=== PATIENT | male | born 1945 | race Caucasian/White ===

== ENCOUNTER → 2017-04-09 | Outpatient (CLI) | payer MEDICARE ==
[~2017-04-09] MED LIST: COREG6.25 MG PO
== END ==
LOC: KOH-I 04-08 09:30 → US 10:00
DX: B18.1 Chronic viral hepatitis B without delta-agent (principal); K82.8 Other specified diseases of gallbladder; N28.89 Other specified disorders of kidney and ureter
CPT/HCPCS: 76705

== ENCOUNTER → 2017-05-06 | Outpatient (CLI) | payer MEDICARE | LOC: KOH-I 15:09 | DX: R05 Cough (principal); R50.9 Fever, unspecified; J44.0 Chronic obstructive pulmonary disease with (acute) lower respiratory infection | CPT/HCPCS: 71020 ==

== ENCOUNTER 2017-05-11 19:34 | Emergency (ER) | payer MEDICARE ==
[2017-05-11 21:00] LABS: HEMOGLOBIN 12.5 gm/dl (14.0-17.5); RED BLOOD COUNT 3.29 M/UL (4.20-5.50); WHITE BLOOD COUNT 9.1 K/UL (4.5-11.0)
== END 2017-05-12 01:32 | disposition home or self-care (01) ==
LOC: ER1 19:34
PROVIDERS: Emergency Medicine
DX: R06.6 Hiccough (principal); I10 Essential (primary) hypertension; I25.10 Atherosclerotic heart disease of native coronary artery without angina pectoris; E78.00 Pure hypercholesterolemia, unspecified; Z95.0 Presence of cardiac pacemaker
CPT/HCPCS: 36415; 71020; 80053; 81001; 82550; 82553; 83690; 83874; 83880; 84484; 85025; 85610; 85730; 93005; 99284; Q0161

== ENCOUNTER 2021-01-19 21:28 | Emergency (ER) | payer MEDICARE, OTHER ==
[~2021-01-19 21:28] MED LIST changes: +ASPIRIN EC81 MG PO; +AUGMENTIN 875-1 EACH PO; +BUDESONIDE0.5 MG/2 M NEB; +BUMETANIDE0.5 MG PO; +CLOPIDOGREL75 MG PO; +ENDOCET 5-3251 EACH PO; +FLOMAX 0.4 MG0.4 MG PO; +IMDUR ER TAB 3030 MG PO; +IPRAT-ALBUT 0.5-3 ML INH; +LIPITOR80 MG PO; +LOPRESSOR 25 MG25 MG PO; +MULTIVITAMINS1 EAC1 PO; +NITROSTAT0.4 MG SL; +PANTOPRAZOLE SO40 MG PO; +PREDNISONE 20 M20 MG PO; +PREDNISONE20 MG PO; +PROSCAR 5 MG TAB5 MG PO; +RANEXA500 MG PO; +SYMBICORT 80-10.2 GM INH; +TOPROL XL25 MG PO; +VENTOLIN HFA 66.7 GM INH; +XANAX0.5 MG PO
[2021-01-19 22:05] LABS: HEMOGLOBIN 11.6 gm/dl (14.0-17.5); RED BLOOD COUNT 3.38 M/UL (4.20-5.50); WHITE BLOOD COUNT 10.2 K/UL (4.5-11.0)
[2021-01-20] MEDS ORDERED: OMNICEF 300 MG300 MG PO (00:37)
[2021-01-20] MEDS ORDERED: PREDNISONE 20 M20 MG PO (00:37)
[2021-01-20] MEDS ORDERED: AZITHROMYCIN500 MG PO (00:37)
== END 2021-01-20 01:07 | disposition home or self-care (01) ==
LOC: ER1 21:28
PROVIDERS: Emergency Medicine
DX: J44.1 Chronic obstructive pulmonary disease with (acute) exacerbation (principal); I50.9 Heart failure, unspecified; N18.9 Chronic kidney disease, unspecified; I25.10 Atherosclerotic heart disease of native coronary artery without angina pectoris; I51.9 Heart disease, unspecified; Z87.891 Personal history of nicotine dependence; Z20.822 Contact with and (suspected) exposure to COVID-19
CPT/HCPCS: 36415; 36600; 71045; 80053; 82550; 82553; 82803; 83605; 83735; 83874; 83880; 84100; 84484; 85025; 85610; 85730; 87040; 93005; 94640; 94664; 96374; 99285; J2930; U0002

== ENCOUNTER 2021-03-15 15:55 | Inpatient (IN) | payer MEDICARE, OTHER ==
[~2021-03-15] VITALS: Ht 165.1 cm; Wt 50.3 kg
[~2021-03-15 15:55] MED LIST changes: +AZITHROMYCIN500 MG PO; +OMNICEF 300 MG300 MG PO
[2021-03-15 16:20] LABS: HEMOGLOBIN 11.6 gm/dl (14.0-17.5); RED BLOOD COUNT 3.44 M/UL (4.20-5.50); WHITE BLOOD COUNT 10.6 K/UL (4.5-11.0)
--- NOTE | 2021-03-15 20:37 | NUR ---
CANNOT OBTAIN HOME MEDS AT THIS TIME. EMERGENCY CONTACT NOT ANSWERING THE PHONE. DO NOT KNOW SONS NUMBER, WHO LIVES WITH HIM
[2021-03-16 02:23] LABS: HEMOGLOBIN 10.1 gm/dl (14.0-17.5)
[2021-03-16 02:26] LABS: RED BLOOD COUNT 3.06 M/UL (4.20-5.50); WHITE BLOOD COUNT 4.1 K/UL (4.5-11.0)
[2021-03-16] MEDS ORDERED: BARACLUDE1 MG PO (21:42)
[2021-03-17 02:56] LABS: HEMOGLOBIN 10.4 gm/dl (14.0-17.5); RED BLOOD COUNT 3.1 M/UL (4.20-5.50)
[2021-03-17 03:00] LABS: WHITE BLOOD COUNT 9.9 K/UL (4.5-11.0)
--- NOTE | 2021-03-17 19:01 | NUR ---
LASIX MORNING AND NIGHT DOSE HELD DUE TO BP LOW.
--- NOTE | 2021-03-17 19:01 | NUR ---
DOBUTAMINE DRIP WAS HELD UNTIL AFTER 1300 BECAUSE PATIENTS BP DID NOT MEET PARAMETERS THAT DR. WALLACE HAS PUT IN THE MAR.
--- NOTE | 2021-03-19 12:21 | NUR ---
03/19/21 1220 TELE ROJAS NOTIFIED OF PATIENT GOING DOWN FOR PROCEDURE
[2021-03-19 19:28] LABS: HEMOGLOBIN 9.8 gm/dl (14.0-17.5); RED BLOOD COUNT 2.88 M/UL (4.20-5.50); WHITE BLOOD COUNT 11.3 K/UL (4.5-11.0)
[2021-03-20 03:27] LABS: HEMOGLOBIN 9.1 gm/dl (14.0-17.5); RED BLOOD COUNT 2.73 M/UL (4.20-5.50); WHITE BLOOD COUNT 9.7 K/UL (4.5-11.0)
--- NOTE | 2021-03-20 03:59 | NUR ---
1939, BLEEDING STOPPED, PRESSURE DRESSING INTACT, FAMILY AT BEDSIDE AND KAYE CATH DRAING. PATIENT CHECKED NUMBEROUS TIMES T/O THE EVENING, NO BEEDING, SITE IS SOFT. DSTAT WAS APPLIED TO SITE PRIOR TO FINAL 4X4 AND COMPRESSION DRESSING. VSS STABLE AND NO FURTHER ECCHYMOSSI NOTED.
[2021-03-21 03:39] LABS: HEMOGLOBIN 8.7 gm/dl (14.0-17.5); RED BLOOD COUNT 2.56 M/UL (4.20-5.50); WHITE BLOOD COUNT 8.9 K/UL (4.5-11.0)
[2021-03-22 04:24] LABS: HEMOGLOBIN 9.2 gm/dl (14.0-17.5); RED BLOOD COUNT 2.71 M/UL (4.20-5.50); WHITE BLOOD COUNT 10.1 K/UL (4.5-11.0)
[2021-03-22] MEDS ORDERED: METOPROLOL SUCC25 MG PO (10:08)
[2021-03-22] MEDS ORDERED: OMNICEF 300 MG300 MG PO (10:14)
[2021-03-22] MEDS ORDERED: IPRAT-ALBUT 0.5-3 ML INH (10:14)
== END 2021-03-22 15:00 | disposition home or self-care (01) | DRG 273 ==
LOC: ER1 15:55 → PROG CARE 17:46 → CDU 17:46 → PROG CARE 18:36
PROVIDERS: Family Medicine; Internal Medicine Nephrology; ADMIT Internal Medicine
PROC: 02583ZZ Destruction of Conduction Mechanism, Percutaneous Approach (ICD-10-PCS; principal; 2021-03-19)
PROC: 02K83ZZ Map Conduction Mechanism, Percutaneous Approach (ICD-10-PCS; 2021-03-19)
PROC: 4A023FZ Measurement of Cardiac Rhythm, Percutaneous Approach (ICD-10-PCS; 2021-03-19)
PROC: 4A0234Z Measurement of Cardiac Electrical Activity, Percutaneous Approach (ICD-10-PCS; 2021-03-19)
PROC: B24BZZ4 Ultrasonography of Heart with Aorta, Transesophageal (ICD-10-PCS; 2021-03-19)
DX: I13.0 Hypertensive heart and chronic kidney disease with heart failure and stage 1 through stage 4 chronic kidney disease, or unspecified chronic kidney disease (principal); J96.21 Acute and chronic respiratory failure with hypoxia; I50.23 Acute on chronic systolic (congestive) heart failure; J18.9 Pneumonia, unspecified organism; J44.1 Chronic obstructive pulmonary disease with (acute) exacerbation; N13.2 Hydronephrosis with renal and ureteral calculous obstruction; I48.92 Unspecified atrial flutter; I47.2 Ventricular tachycardia; D62 Acute posthemorrhagic anemia; Z20.822 Contact with and (suspected) exposure to COVID-19; N18.30 Chronic kidney disease, stage 3 unspecified; I07.1 Rheumatic tricuspid insufficiency; I27.20 Pulmonary hypertension, unspecified; I71.4 Abdominal aortic aneurysm, without rupture; I44.7 Left bundle-branch block, unspecified; R53.81 Other malaise; N43.3 Hydrocele, unspecified; N40.0 Benign prostatic hyperplasia without lower urinary tract symptoms; I25.5 Ischemic cardiomyopathy; D63.1 Anemia in chronic kidney disease; I48.91 Unspecified atrial fibrillation; Z79.01 Long term (current) use of anticoagulants; Z95.810 Presence of automatic (implantable) cardiac defibrillator; Z87.891 Personal history of nicotine dependence; I25.2 Old myocardial infarction; Z88.8 Allergy status to other drugs, medicaments and biological substances; Z82.49 Family history of ischemic heart disease and other diseases of the circulatory system; Z95.5 Presence of coronary angioplasty implant and graft
CPT/HCPCS: 0240U; 36415; 36600; 71045; 76870; 80048; 80053; 82550; 82553; 82570; 82728; 82803; 83540; 83550; 83605; 83874; 83880; 84156; 84484; 85025; 85610; 85730; 93005; 93312; 93320; 93609; 93621; 94640; 94664; 94760; 96374; 96375; 97110-GP-CQ; 97161; 97530-GP-CQ; 99152; 99153; 99285; C1733; C1766; J0696; J1205; J1250; J1644; J1940; J2250; J2920; J2930; J3010; J7040

== ENCOUNTER 2021-05-02 17:15 | Inpatient (IN) | payer MEDICARE, MEDICAID ==
[~2021-05-02] VITALS: Ht 162.6 cm; Wt 45.8 kg
[~2021-05-02 17:15] MED LIST changes: +BARACLUDE1 MG PO; +METOPROLOL SUCC25 MG PO
[2021-05-02 17:54] LABS: HEMOGLOBIN 9.6 gm/dl (14.0-17.5); RED BLOOD COUNT 2.72 M/UL (4.20-5.50); WHITE BLOOD COUNT 9.3 K/UL (4.5-11.0)
--- NOTE | 2021-05-03 11:43 | NUR ---
PATIENT HAS BEEN NPO.
--- NOTE | 2021-05-03 11:50 | NUR ---
DR. WELLS WITH THE PATIENT AND AWARE OF PATIENT'S LOW B/P
--- NOTE | 2021-05-03 16:43 | NUR ---
reported to dr. lugo of telemetry reading sent on the floor and vtach episode and acknowledged
[2021-05-04 01:03] LABS: ACINETOBACTER BAUMANNII Not Detected (Negative); CANDIDA ALBICANS Not Detected (Negative); CANDIDA KRUSEI Not Detected (Negative); CANDIDA TROPICALIS Not Detected (Negative); ENTEROCOCCUS Not Detected (Negative); ESCHERICHIA COLI Not Detected (Negative); HAEMOPHILUS INFLUENZAE Not Detected (Negative); KLEBSIELLA OXYTOCA Not Detected (Negative); KLEBSIELLA PNEUMONIAE Not Detected (Negative); KPC-CARBAPENEM-RESISTANCE GENE Not Detected (Negative); PROTEUS Not Detected (Negative); PSEUDOMONAS AERUGINOSA Not Detected (Negative); SERRATIA MARCESANS Not Detected (Negative); STAPHYLOCOCCUS Not Detected (Negative); STAPHYLOCOCCUS AUREUS Not Detected (Negative); STREP AGALACTIAE (GROUP B) Not Detected (Negative); STREP PYOGENES (GROUP A) Not Detected (Negative); STREPTOCOCCUS Not Detected (Negative); mecA (METHICILLIN RESIST GENE Not Detected (Negative); vanA/B (VANCOMYCIN RESIST GENE Not Detected (Negative)
[2021-05-04 06:02] LABS: HEMOGLOBIN 9.1 gm/dl (14.0-17.5); RED BLOOD COUNT 2.56 M/UL (4.20-5.50); WHITE BLOOD COUNT 7.6 K/UL (4.5-11.0)
[2021-05-05] MEDS ORDERED: ASPIRIN EC81 MG PO (11:59)
== END 2021-05-05 14:44 | disposition home or self-care (01) | DRG 291 ==
LOC: ER1 17:15 → M/S 21:18 → CDU 21:18 → M/S 23:34
PROVIDERS: Emergency Medicine; Physician Assistant Medical; ADMIT Internal Medicine
DX: I13.0 Hypertensive heart and chronic kidney disease with heart failure and stage 1 through stage 4 chronic kidney disease, or unspecified chronic kidney disease (principal); I50.23 Acute on chronic systolic (congestive) heart failure; J96.11 Chronic respiratory failure with hypoxia; Z20.822 Contact with and (suspected) exposure to COVID-19; N18.30 Chronic kidney disease, stage 3 unspecified; I95.89 Other hypotension; J44.9 Chronic obstructive pulmonary disease, unspecified; I25.5 Ischemic cardiomyopathy; N40.0 Benign prostatic hyperplasia without lower urinary tract symptoms; E78.5 Hyperlipidemia, unspecified; I48.0 Paroxysmal atrial fibrillation; K74.60 Unspecified cirrhosis of liver; I25.10 Atherosclerotic heart disease of native coronary artery without angina pectoris; Z95.1 Presence of aortocoronary bypass graft; Z95.810 Presence of automatic (implantable) cardiac defibrillator; Z99.81 Dependence on supplemental oxygen; Z79.899 Other long term (current) drug therapy; Z87.891 Personal history of nicotine dependence; Z86.19 Personal history of other infectious and parasitic diseases
CPT/HCPCS: 36415; 36600; 71045; 80048; 80053; 80202; 81001; 82550; 82553; 82803; 83605; 83735; 83874; 83880; 84100; 84132; 84484; 85025; 85027; 87040; 87077; 87086; 87150; 87186; 93005; 94640; 94664; 94760; 96374; 96375; 99285; A6212; J0696; J1650; J2930; J3370; J7070; U0002

== ENCOUNTER → 2021-05-07 | Outpatient (CLI) | payer MEDICARE, OTHER | LOC: EXRD 15:00 | DX: R06.02 Shortness of breath (principal) | CPT/HCPCS: 71046 ==

== ENCOUNTER 2021-08-28 13:22 | Inpatient (IN) | payer MEDICARE ==
[~2021-08-28] VITALS: Ht 170.2 cm; Wt 54.9 kg
[~2021-08-28 13:22] MED LIST changes: -BUMETANIDE0.5 MG PO
[2021-08-28 14:52] LABS: HEMOGLOBIN 9.8 gm/dl (14.0-17.5); RED BLOOD COUNT 2.79 M/UL (4.20-5.50); WHITE BLOOD COUNT 6.9 K/UL (4.5-11.0)
[2021-08-29] MEDS ORDERED: PREDNISONE10 MG PO (01:02)
--- NOTE | 2021-08-29 03:13 | NUR ---
BLADDER SCAN PATIENT D/T DISTENDED BLADDER. MORE THAN 500ML URINE NOTED ON SCAN. NOTIFIED DR DOTY AWAITING ORDERS.
[2021-08-29 04:06] LABS: HEMOGLOBIN 9.8 gm/dl (14.0-17.5); RED BLOOD COUNT 2.84 M/UL (4.20-5.50)
[2021-08-29 04:08] LABS: WHITE BLOOD COUNT 4.6 K/UL (4.5-11.0)
--- NOTE | 2021-08-29 07:06 | NUR ---
PT HAS HAD TO URINATE ABOUT EVERY 10 MINUTES FOR THE PAST 5 HOURS. HE IS UNABLE TO EMPTY HIS BLADDER. THE BLADDER SCAN SHOWED MORE THAN 400ML. DR. DOTY WAS NOTIFIED AND ORDER TO PLACE KAYE.
[2021-08-29] MEDS ORDERED: BUMETANIDE1 MG PO (11:23)
[2021-08-30 03:43] LABS: HEMOGLOBIN 9.5 gm/dl (14.0-17.5); RED BLOOD COUNT 2.75 M/UL (4.20-5.50)
[2021-08-30 03:45] LABS: WHITE BLOOD COUNT 7.2 K/UL (4.5-11.0)
[2021-08-31] MEDS ORDERED: ASPIRIN EC81 MG PO (16:21)
== END 2021-08-31 18:30 | disposition home or self-care (01) | DRG 292 ==
LOC: ER1 13:22 → CDU 17:29 → M/S 22:54
PROVIDERS: Emergency Medicine; Physician Assistant Medical; ADMIT Internal Medicine Infectious Disease
PROC: 3E0333Z Introduction of Anti-inflammatory into Peripheral Vein, Percutaneous Approach (ICD-10-PCS; principal; 2021-08-28)
DX: I50.23 Acute on chronic systolic (congestive) heart failure (principal); N18.4 Chronic kidney disease, stage 4 (severe); J90 Pleural effusion, not elsewhere classified; N17.9 Acute kidney failure, unspecified; J98.11 Atelectasis; B19.10 Unspecified viral hepatitis B without hepatic coma; Z20.822 Contact with and (suspected) exposure to COVID-19; J44.9 Chronic obstructive pulmonary disease, unspecified; N40.0 Benign prostatic hyperplasia without lower urinary tract symptoms; I25.10 Atherosclerotic heart disease of native coronary artery without angina pectoris; K40.90 Unilateral inguinal hernia, without obstruction or gangrene, not specified as recurrent; R13.10 Dysphagia, unspecified; I25.5 Ischemic cardiomyopathy; K74.60 Unspecified cirrhosis of liver; D69.6 Thrombocytopenia, unspecified; D63.1 Anemia in chronic kidney disease; Z87.442 Personal history of urinary calculi; Z87.891 Personal history of nicotine dependence; Z95.810 Presence of automatic (implantable) cardiac defibrillator; Z95.1 Presence of aortocoronary bypass graft; Z79.52 Long term (current) use of systemic steroids; Z79.82 Long term (current) use of aspirin; Z98.890 Other specified postprocedural states
CPT/HCPCS: 36415; 36600; 71045; 74230; 80048; 80053; 82550; 82553; 82803; 83605; 83735; 83874; 83880; 84484; 85025; 85027; 87040; 92526; 92610; 92611-GN; 93005; 94640; 94664; 94760; 96374; 97110-GP-CQ; 97116-GP-CQ; 97161; 99285; J1100; J1940; U0002

== ENCOUNTER 2021-11-23 13:42 | Inpatient (IN) | payer MEDICARE ==
[~2021-11-23] VITALS: Ht 165.1 cm; Wt 45.0 kg
[~2021-11-23 13:42] MED LIST changes: +BUMETANIDE1 MG PO; +PREDNISONE10 MG PO; +PROAIR HFA8.5 GM INH; -VENTOLIN HFA 66.7 GM INH
[2021-11-23 14:26] LABS: HEMOGLOBIN 9.9 gm/dl (14.0-17.5); RED BLOOD COUNT 2.87 M/UL (4.20-5.50); WHITE BLOOD COUNT 11.7 K/UL (4.5-11.0)
[2021-11-24 04:11] LABS: RED BLOOD COUNT 2.61 M/UL (4.20-5.50)
[2021-11-24 04:15] LABS: WHITE BLOOD COUNT 6.5 K/UL (4.5-11.0)
--- NOTE | 2021-11-25 05:41 | NUR ---
PHARMACY, MARQUES MULLER, MADE AWARE OF VANC TROUGH 18.9. HE STATED "THEY WILL TAKE CARE OF IT THIS MORNING."
[2021-11-26 04:50] LABS: HEMOGLOBIN 10.1 gm/dl (14.0-17.5)
[2021-11-26 05:09] LABS: RED BLOOD COUNT 2.98 M/UL (4.20-5.50); WHITE BLOOD COUNT 15.6 K/UL (4.5-11.0)
[2021-11-28 04:58] LABS: HEMOGLOBIN 10.8 gm/dl (14.0-17.5); RED BLOOD COUNT 3.11 M/UL (4.20-5.50)
[2021-11-28 05:06] LABS: WHITE BLOOD COUNT 20.6 K/UL (4.5-11.0)
[2021-11-29 02:46] LABS: HEMOGLOBIN 10.8 gm/dl (14.0-17.5); RED BLOOD COUNT 3.22 M/UL (4.20-5.50); WHITE BLOOD COUNT 21.4 K/UL (4.5-11.0)
[2021-11-30 02:54] LABS: HEMOGLOBIN 9.6 gm/dl (14.0-17.5); RED BLOOD COUNT 2.84 M/UL (4.20-5.50); WHITE BLOOD COUNT 6.5 K/UL (4.5-11.0)
[2021-12-01 03:10] LABS: HEMOGLOBIN 9.5 gm/dl (14.0-17.5); RED BLOOD COUNT 2.78 M/UL (4.20-5.50)
[2021-12-01 03:21] LABS: WHITE BLOOD COUNT 8.7 K/UL (4.5-11.0)
[2021-12-02 02:47] LABS: HEMOGLOBIN 11.5 gm/dl (14.0-17.5); RED BLOOD COUNT 3.37 M/UL (4.20-5.50); WHITE BLOOD COUNT 31.7 K/UL (4.5-11.0)
[2021-12-03 00:36] LABS: BODY FLUID SOURCE PLEURAL; LDH, BODY FLUID 473 U/L; MONONUCLEAR CELLS 45.1 (75-100); POLYMORPHONUCLEAR % 54.9 (0-25); RBC (AUTOMATED) 8300 (0-100000); TOTAL PROTEIN, BODY FLUID 2.3 gm/dL; WBC (AUTOMATED) 153 (0-500)
[2021-12-03 07:03] LABS: HEMOGLOBIN 11.2 gm/dl (14.0-17.5); RED BLOOD COUNT 3.28 M/UL (4.20-5.50)
[2021-12-03 07:17] LABS: WHITE BLOOD COUNT 18.1 K/UL (4.5-11.0)
[2021-12-04 04:14] LABS: HEMOGLOBIN 9.5 gm/dl (14.0-17.5)
[2021-12-04 04:20] LABS: RED BLOOD COUNT 2.81 M/UL (4.20-5.50); WHITE BLOOD COUNT 9.5 K/UL (4.5-11.0)
[2021-12-05 03:07] LABS: HEMOGLOBIN 9.1 gm/dl (14.0-17.5); RED BLOOD COUNT 2.69 M/UL (4.20-5.50); WHITE BLOOD COUNT 11.2 K/UL (4.5-11.0)
[2021-12-06 04:05] LABS: HEMOGLOBIN 10.6 gm/dl (14.0-17.5)
[2021-12-06 04:09] LABS: RED BLOOD COUNT 3.06 M/UL (4.20-5.50); WHITE BLOOD COUNT 16.4 K/UL (4.5-11.0)
[2021-12-06 17:13] LABS: HEPARIN INDUCED PLATELET AB 0.151 OD (0.000-0.400)
[2021-12-07 07:03] LABS: HEMOGLOBIN 9.8 gm/dl (14.0-17.5); RED BLOOD COUNT 2.89 M/UL (4.20-5.50); WHITE BLOOD COUNT 14.7 K/UL (4.5-11.0)
--- NOTE | 2021-12-07 10:15 | NUR ---
ATTEMPTED TO CONTACT EMERGENCY CONTACT AND ALSO THE SON THAT IS ON THE FACE SHEET AND NO ANSWER. WAS CALLING TO INFORM THE FAMILY OF THE PATIENTS CONDITION AND THE TRANSFER THAT IS GOING TO BE DONE TO [facility].
[2021-12-08 03:25] LABS: HEMOGLOBIN 9.5 gm/dl (14.0-17.5); RED BLOOD COUNT 2.83 M/UL (4.20-5.50)
[2021-12-08 03:26] LABS: WHITE BLOOD COUNT 21.2 K/UL (4.5-11.0)
[2021-12-08 13:38] LABS: HEMOGLOBIN 10.2 gm/dl (14.0-17.5); RED BLOOD COUNT 3.06 M/UL (4.20-5.50)
[2021-12-09 03:37] LABS: WHITE BLOOD COUNT 19.4 K/UL (4.5-11.0)
[2021-12-09 03:38] LABS: RED BLOOD COUNT 2.69 M/UL (4.20-5.50)
[2021-12-10 04:17] LABS: HEMOGLOBIN 8.9 gm/dl (14.0-17.5); RED BLOOD COUNT 2.69 M/UL (4.20-5.50); WHITE BLOOD COUNT 14.9 K/UL (4.5-11.0)
[2021-12-11 04:50] LABS: HEMOGLOBIN 8.5 gm/dl (14.0-17.5); RED BLOOD COUNT 2.49 M/UL (4.20-5.50); WHITE BLOOD COUNT 12.6 K/UL (4.5-11.0)
[2021-12-12 03:51] LABS: HEMOGLOBIN 8.2 gm/dl (14.0-17.5); RED BLOOD COUNT 2.43 M/UL (4.20-5.50); WHITE BLOOD COUNT 13.7 K/UL (4.5-11.0)
--- NOTE | 2021-12-13 04:03 | NUR ---
RIGHT CHEST TUBE INSERTION SITE DRESSING SATURATED; REPLACED WITH GAUZE AND TEGADERM. SKIN TEAR DRESSINGS REPLACED; ARMS RE-WRAPPED WITH CLEAN NON-ADHERENT PADS AND KERLIX. PT TOLERATED WELL. BED CHANGED. PATIENT DOING WELL AT THIS TIME; VERY ALERT AND PLEASANT.
[2021-12-13 04:04] LABS: HEMOGLOBIN 8.1 gm/dl (14.0-17.5); RED BLOOD COUNT 2.35 M/UL (4.20-5.50); WHITE BLOOD COUNT 11.1 K/UL (4.5-11.0)
--- NOTE | 2021-12-14 17:56 | NUR ---
12/14/21 1750 REPORT CALLED TO SERGEY, TO BE TRANSFERRED TO ROOM [id number]
[2021-12-15 05:50] LABS: HEMOGLOBIN 9.3 gm/dl (14.0-17.5)
[2021-12-15 05:58] LABS: RED BLOOD COUNT 2.68 M/UL (4.20-5.50); WHITE BLOOD COUNT 15.3 K/UL (4.5-11.0)
[2021-12-16 07:20] LABS: HEMOGLOBIN 9.1 gm/dl (14.0-17.5); RED BLOOD COUNT 2.71 M/UL (4.20-5.50); WHITE BLOOD COUNT 14.2 K/UL (4.5-11.0)
[2021-12-17 04:32] LABS: HEMOGLOBIN 9.3 gm/dl (14.0-17.5); RED BLOOD COUNT 2.74 M/UL (4.20-5.50); WHITE BLOOD COUNT 13.7 K/UL (4.5-11.0)
[2021-12-18 07:42] LABS: HEMOGLOBIN 8.8 gm/dl (14.0-17.5); RED BLOOD COUNT 2.57 M/UL (4.20-5.50)
[2021-12-19 04:28] LABS: HEMOGLOBIN 9.4 gm/dl (14.0-17.5); RED BLOOD COUNT 2.68 M/UL (4.20-5.50); WHITE BLOOD COUNT 22.3 K/UL (4.5-11.0)
[2021-12-19 16:41] LABS: WHITE BLOOD COUNT 18.2 K/UL (4.5-11.0)
[2021-12-20 05:56] LABS: HEMOGLOBIN 8.6 gm/dl (14.0-17.5); RED BLOOD COUNT 2.44 M/UL (4.20-5.50)
[2021-12-20 06:01] LABS: WHITE BLOOD COUNT 11.1 K/UL (4.5-11.0)
[2021-12-21 04:56] LABS: HEMOGLOBIN 7.5 gm/dl (14.0-17.5); WHITE BLOOD COUNT 12.1 K/UL (4.5-11.0)
[2021-12-21 05:05] LABS: RED BLOOD COUNT 2.18 M/UL (4.20-5.50)
[2021-12-22 10:33] LABS: HEMOGLOBIN 8.8 gm/dl (14.0-17.5); RED BLOOD COUNT 2.53 M/UL (4.20-5.50)
[2021-12-23 08:09] LABS: RED BLOOD COUNT 2.29 M/UL (4.20-5.50)
[2021-12-23 08:25] LABS: WHITE BLOOD COUNT 14.2 K/UL (4.5-11.0)
[2021-12-24 06:50] LABS: HEMOGLOBIN 7.4 gm/dl (14.0-17.5); RED BLOOD COUNT 2.14 M/UL (4.20-5.50)
[2021-12-24 06:54] LABS: WHITE BLOOD COUNT 10.2 K/UL (4.5-11.0)
[2021-12-24 16:11] LABS: HEPARIN INDUCED PLATELET AB 0.123 OD (0.000-0.400)
[2021-12-25 06:56] LABS: HEMOGLOBIN 7.5 gm/dl (14.0-17.5); RED BLOOD COUNT 2.15 M/UL (4.20-5.50)
[2021-12-26 05:11] LABS: WHITE BLOOD COUNT 7.7 K/UL (4.5-11.0)
[2021-12-26 05:14] LABS: HEMOGLOBIN 6.3 gm/dl (14.0-17.5); RED BLOOD COUNT 1.84 M/UL (4.20-5.50)
--- NOTE | 2021-12-26 06:32 | NUR ---
[facility] 6.[address] KIRK NO ANSWER, CALLED LAB NO BLOOD ON STAND , [address] KIRK PRBC 2UNITS, ALSO DURING THIS TIME THE PT HAS PULLED IV OUT. ORDER PLACED. NOTIFIED ONCOMING NURSE.
--- NOTE | 2021-12-26 12:30 | NUR ---
dr. price aware of 15 beat run of nsvt as notified per telemetry. no new orders noted.
--- NOTE | 2021-12-26 13:21 | NUR ---
DR. DELGADO AWARE OF PATIENT'S LONG BURST OF V TACH. NEW ORDER NOTED FOR EKG.
--- NOTE | 2021-12-27 03:01 | NUR ---
PT KEEPS HOLLERING FOR WATER TO DRINK. PT WILL NOT DRINK NECTAR THICK LIQUIDS. TOOK LEMON GLYCERIN SWABS FOR ORAL CARE FOR PT. PT STATES THAT HELPED SOME.
[2021-12-27 07:17] LABS: HEMOGLOBIN 10.7 gm/dl (14.0-17.5); RED BLOOD COUNT 3.53 M/UL (4.20-5.50); WHITE BLOOD COUNT 11.9 K/UL (4.5-11.0)
[2021-12-28 04:05] LABS: HEMOGLOBIN 10.5 gm/dl (14.0-17.5); RED BLOOD COUNT 3.38 M/UL (4.20-5.50); WHITE BLOOD COUNT 12.5 K/UL (4.5-11.0)
[2021-12-29 04:58] LABS: HEMOGLOBIN 10.6 gm/dl (14.0-17.5); RED BLOOD COUNT 3.46 M/UL (4.20-5.50); WHITE BLOOD COUNT 14.5 K/UL (4.5-11.0)
[2021-12-30 04:44] LABS: HEMOGLOBIN 9.7 gm/dl (14.0-17.5); WHITE BLOOD COUNT 11.7 K/UL (4.5-11.0)
[2021-12-30 04:47] LABS: RED BLOOD COUNT 3.09 M/UL (4.20-5.50)
[2021-12-31 05:28] LABS: HEMOGLOBIN 9.1 gm/dl (14.0-17.5); RED BLOOD COUNT 2.9 M/UL (4.20-5.50); WHITE BLOOD COUNT 11.6 K/UL (4.5-11.0)
[2022-01-01 06:56] LABS: HEMOGLOBIN 7.8 gm/dl (14.0-17.5); RED BLOOD COUNT 2.51 M/UL (4.20-5.50); WHITE BLOOD COUNT 11.5 K/UL (4.5-11.0)
--- NOTE | 2022-01-01 11:45 | NUR ---
PROVIDER HAD PATIENT CLAMPED OFF OF SUCTION AT 0800 THIS AM. AT 1100 PATIENT REQUESTED TO BE HOOKED BACK UP TO SUCTION AND NEEDED ZOFRAN. PROVIDER AWARE. WILL CONTINUE TO MONITOR.
[2022-01-02 10:42] LABS: HEMOGLOBIN 9.3 gm/dl (14.0-17.5); WHITE BLOOD COUNT 13.6 K/UL (4.5-11.0)
[2022-01-02 10:43] LABS: RED BLOOD COUNT 3.03 M/UL (4.20-5.50)
[2022-01-03 07:06] LABS: HEMOGLOBIN 8.6 gm/dl (14.0-17.5); WHITE BLOOD COUNT 12.9 K/UL (4.5-11.0)
[2022-01-03 07:07] LABS: RED BLOOD COUNT 2.71 M/UL (4.20-5.50)
[2022-01-04 07:57] LABS: RED BLOOD COUNT 2.92 M/UL (4.20-5.50); WHITE BLOOD COUNT 12.9 K/UL (4.5-11.0)
[2022-01-05 07:13] LABS: HEMOGLOBIN 8.4 gm/dl (14.0-17.5); RED BLOOD COUNT 2.75 M/UL (4.20-5.50); WHITE BLOOD COUNT 14.6 K/UL (4.5-11.0)
[2022-01-06 06:43] LABS: HEMOGLOBIN 9.4 gm/dl (14.0-17.5); RED BLOOD COUNT 2.9 M/UL (4.20-5.50); WHITE BLOOD COUNT 12.6 K/UL (4.5-11.0)
--- NOTE | 2022-01-07 02:54 | NUR ---
TELE CALLED TO REPORT A NEW RUN OF V TACH. I CONTACTED THE PROVIDER AND PLACED ORDERS FOR CARDIOLOGY AND MAG LEVELS INSTRUCTED.
[2022-01-07 05:50] LABS: HEMOGLOBIN 9.5 gm/dl (14.0-17.5); RED BLOOD COUNT 2.99 M/UL (4.20-5.50); WHITE BLOOD COUNT 14.1 K/UL (4.5-11.0)
--- NOTE | 2022-01-07 05:58 | NUR ---
lab stated mag checks have to be sent out D/T an issue in the lab here. results will take longer to process
[2022-01-07] MEDS ORDERED: MELATONIN3 MG PO (11:45)
[2022-01-07] MEDS ORDERED: LEVOFLOXACIN500 MG PO (11:45)
[2022-01-08 06:54] LABS: HEMOGLOBIN 9.4 gm/dl (14.0-17.5); RED BLOOD COUNT 3.07 M/UL (4.20-5.50); WHITE BLOOD COUNT 12.8 K/UL (4.5-11.0)
[2022-01-09 06:53] LABS: HEMOGLOBIN 9.3 gm/dl (14.0-17.5); WHITE BLOOD COUNT 13.3 K/UL (4.5-11.0)
--- NOTE | 2022-01-10 02:08 | NUR ---
PATIENT VOCALIZING LOUDLY MOST OF THE NIGHT "GIVE ME SOME WATER". OFFERED PATIENT NECTAR THICK WATER THAT HE REFUSED. PATIENT REFUSING TO TAKE MEDICATIONS. REMOVES NASAL CANNULA REPEATEDLY.
[2022-01-10 04:01] LABS: HEMOGLOBIN 9.8 gm/dl (14.0-17.5); RED BLOOD COUNT 3.15 M/UL (4.20-5.50); WHITE BLOOD COUNT 13.1 K/UL (4.5-11.0)
[2022-01-11 03:17] LABS: HEMOGLOBIN 9.1 gm/dl (14.0-17.5); RED BLOOD COUNT 2.87 M/UL (4.20-5.50); WHITE BLOOD COUNT 10.5 K/UL (4.5-11.0)
== END 2022-01-11 17:27 | DRG 177 ==
LOC: ER1 13:42 → CDU 16:17 → PROG CARE 16:17 → MED SURG 4 16:17 → PROG CARE 17:00 → MED SURG 4 11-29 20:04 → CCU 12-01 22:11 → PROG CARE 12-02 16:37 → 3 EAST 12-14 11:04 → MED SURG 4 12-14 18:17
PROVIDERS: Emergency Medicine; Internal Medicine; Internal Medicine Infectious Disease; Internal Medicine Nephrology; Physician Assistant Medical; Registered Nurse; ADMIT Internal Medicine
PROC: 5A09557 Assistance with Respiratory Ventilation, Greater than 96 Consecutive Hours, Continuous Positive Airway Pressure (ICD-10-PCS; principal; 2021-11-23)
PROC: 8E0ZXY6 Isolation (ICD-10-PCS; 2021-11-23)
PROC: XW033E5 Introduction of Remdesivir Anti-infective into Peripheral Vein, Percutaneous Approach, New Technology Group 5 (ICD-10-PCS; 2021-11-24)
PROC: 3E0333Z Introduction of Anti-inflammatory into Peripheral Vein, Percutaneous Approach (ICD-10-PCS; 2021-11-24)
PROC: 3E033XZ Introduction of Vasopressor into Peripheral Vein, Percutaneous Approach (ICD-10-PCS; 2021-11-24)
PROC: 0W9930Z Drainage of Right Pleural Cavity with Drainage Device, Percutaneous Approach (ICD-10-PCS; 2021-12-01)
PROC: 5A0935A Assistance with Respiratory Ventilation, Less than 24 Consecutive Hours, High Flow/Velocity Cannula (ICD-10-PCS; 2021-12-14)
PROC: 30233N1 Transfusion of Nonautologous Red Blood Cells into Peripheral Vein, Percutaneous Approach (ICD-10-PCS; 2021-12-26)
PROC: 30233R1 Transfusion of Nonautologous Platelets into Peripheral Vein, Percutaneous Approach (ICD-10-PCS; 2021-12-26)
PROC: B24BZZZ Ultrasonography of Heart with Aorta (ICD-10-PCS; 2021-12-28)
DX: U07.1 COVID-19 (principal); J12.82 Pneumonia due to coronavirus disease 2019; J96.01 Acute respiratory failure with hypoxia; I50.23 Acute on chronic systolic (congestive) heart failure; J15.9 Unspecified bacterial pneumonia; G93.41 Metabolic encephalopathy; A41.9 Sepsis, unspecified organism; R65.21 Severe sepsis with septic shock; R57.0 Cardiogenic shock; J69.0 Pneumonitis due to inhalation of food and vomit; E44.0 Moderate protein-calorie malnutrition; I13.0 Hypertensive heart and chronic kidney disease with heart failure and stage 1 through stage 4 chronic kidney disease, or unspecified chronic kidney disease; J44.0 Chronic obstructive pulmonary disease with (acute) lower respiratory infection; J93.82 Other air leak; E87.0 Hyperosmolality and hypernatremia; N17.9 Acute kidney failure, unspecified; J90 Pleural effusion, not elsewhere classified; J94.8 Other specified pleural conditions; E87.2 Acidosis; N13.30 Unspecified hydronephrosis; E87.3 Alkalosis; D61.818 Other pancytopenia; E87.1 Hypo-osmolality and hyponatremia; J93.83 Other pneumothorax; Z68.1 Body mass index [BMI] 19.9 or less, adult; I47.1 Supraventricular tachycardia; I48.91 Unspecified atrial fibrillation; K74.60 Unspecified cirrhosis of liver; B18.2 Chronic viral hepatitis C; E78.5 Hyperlipidemia, unspecified; I25.10 Atherosclerotic heart disease of native coronary artery without angina pectoris; I25.5 Ischemic cardiomyopathy; Z95.810 Presence of automatic (implantable) cardiac defibrillator; Z87.891 Personal history of nicotine dependence; Z82.49 Family history of ischemic heart disease and other diseases of the circulatory system; Z83.3 Family history of diabetes mellitus; E86.0 Dehydration; N18.30 Chronic kidney disease, stage 3 unspecified; E87.5 Hyperkalemia; T38.0X5A Adverse effect of glucocorticoids and synthetic analogues, initial encounter; J98.2 Interstitial emphysema; K40.90 Unilateral inguinal hernia, without obstruction or gangrene, not specified as recurrent; I71.4 Abdominal aortic aneurysm, without rupture; R53.81 Other malaise; I95.9 Hypotension, unspecified; N40.0 Benign prostatic hyperplasia without lower urinary tract symptoms; L89.151 Pressure ulcer of sacral region, stage 1; L89.211 Pressure ulcer of right hip, stage 1; Z95.828 Presence of other vascular implants and grafts; Z95.5 Presence of coronary angioplasty implant and graft; D53.9 Nutritional anemia, unspecified; Z66 Do not resuscitate; E53.8 Deficiency of other specified B group vitamins
CPT/HCPCS: ECHO; 36415; 36430; 36600; 51702; 70450; 71045; 71250; 74230; 80048; 80053; 80069; 80202; 81001; 82040; 82550; 82553; 82607; 82746; 82803; 83540; 83550; 83605; 83615; 83735; 83880; 84100; 84155; 84157; 84439; 84443; 84484; 85025; 85027; 86140; 86850; 86900; 86901; 86920; 87040; 87070; 87081; 87086; 87205; 89051; 92526; 92610; 92611-GN; 93005; 93306; 94640; 94660; 94664; 94760; 96374; 96375; 97110; 97110-GP-CQ; 97116-GP-CQ; 97161; 97164; 97166; 97530; 97530-GP-CQ; 97535; 99285; 99406; A6212; C1729; J0248; J0692; J0696; J1100; J1335; J1650; J1940; J2020; J2185; J2270; J2405; J2920; J3370; J3475; J3486; J7030; J7070; P9016; P9037; P9047; U0002